=== PATIENT | male | born 1995 | race Two or more races ===

== ENCOUNTER 2022-08-19 19:49 | Emergency (ER) | payer OTHER ==
[~2022-08-19] VITALS: Ht 172.7 cm; Wt 99.8 kg
[2022-08-19] MEDS ORDERED: ACETAMINOPHEN ES 500 MG TABLET ONE (20:19)
[2022-08-19] MEDS ORDERED: IBUPROFEN 600 MG TABLET ONE (20:19)
[2022-08-19] MEDS ORDERED: IBUPROFEN 600 MG TABLET PO ONE (20:30)
[2022-08-19] MEDS ORDERED: ACETAMINOPHEN ES 500 MG TABLET PO ONE (20:30)
[2022-08-19 20:38] LABS: BILIRUBIN,URINE NEGATIVE (NEGATIVE); COLOR,URINE YELLOW (YELLOW); LEUKOCYTE ESTERASE ,URINE NEGATIVE (NEGATIVE); NITRITE, URINE NEGATIVE (NEGATIVE); PH,URINE 5.5 (5.0-8.0); UGLUCOSE TRACE mg/dL (NEGATIVE); UROBILINOGEN,URINE 0.2 EU/dL (0.2)
[2022-08-19 20:39] LABS: PROTEIN,URINE NEGATIVE (NEGATIVE)
[2022-08-19] MEDS ORDERED: IBUP-1953 PO (22:40)
[2022-08-19 22:49] VITALS: BP 147/96
== END 2022-08-19 22:50 | disposition home or self-care (01) ==
LOC: ER 19:56
DX: S39.012A Strain of muscle, fascia and tendon of lower back, initial encounter (principal); Z60.2 Problems related to living alone; V49.9XXA Car occupant (driver) (passenger) injured in unspecified traffic accident, initial encounter; Y93.89 Activity, other specified; Y92.89 Other specified places as the place of occurrence of the external cause; Y99.8 Other external cause status
CPT/HCPCS: 72131-TC